=== PATIENT | female | born 1970 | race Caucasian/White ===

== ENCOUNTER 2019-11-08 11:44 | Emergency (ER) | payer OTHER ==
[2019-11-08] MEDS ORDERED: TORAdol 30 mg Injection IM ONE (12:39)
[2019-11-08] MEDS ORDERED: Norflex 60 MG/2 ML IM ONE (12:39)
--- NOTE | 2019-11-08 13:28 | XRAY ---
Indication: Back pain. History non-Hodgkin's lymphoma. Metastatic lesion. Multiple contiguous axial images obtained through the lumbar spine. Two-dimensional sagittal and coronal reformatted images obtained. Comparison: None Axial images negative for acute fracture, suspicious bony lesions, or spinal canal stenosis. Bilateral L5 spondylolysis with minimal L5-S1 broad-based disc bulge produces bilateral foraminal narrowing. Sagittal and coronal reformatted images demonstrates normal alignment with vertebral body heights/disc spaces maintained. No acute compression fracture or subluxation. Visualized noncontrasted soft tissues emesis minimal aortic calcifications without AAA. Impression: 1. Minimal L5-S1 broad-based disc bulge and L5 spondylolysis without spondylolisthesis with subsequent mild bilateral foraminal narrowing. 2. Remaining CT lumbar spine is negative.
[2019-11-08] MEDS ORDERED: TORAdol 30 mg Injection ONE (13:53)
[2019-11-08] MEDS ORDERED: Norflex 60 MG/2 ML ONE (13:53)
--- NOTE | 2019-11-08 14:43 | XRAY ---
Indication: Back pain. Multiple contiguous axial images obtained through the thoracic spine. Sagittal and coronal reformatted images obtained. Comparison: None Axial images negative for acute fracture, suspicious bony lesions, or spinal canal stenosis. Sagittal and coronal reformatted images demonstrates minimal dextroscoliosis centered at T8. Vertebral body heights/disc spaces maintained. No acute compression fracture or subluxation. Visualized noncontrasted soft tissues demonstrates mild bilateral lung dependent atelectasis, minimal biapical subpleural cystic changes, and minimal aortic calcifications. Impression: 1. Minimal dextroscoliosis and chronic chest findings. 2. Remaining CT thoracic spine is negative.
--- NOTE | 2019-11-08 15:25 | ERPHSYRPT ---
- History of Present Illness Time Seen by Provider: 11/08/19 12:25 Source: patient Patient Subjective Stated Complaint: Back pain Triage Nursing Assessment: Patient ambulated into ED and transferred self to bed. Patient A+O X3. Patient's skin pink, warm and dry. Patient complains of upper back pain that hurts when she extends arms for the past two months. No visible areas or injuries noted. Patient denies injury. Patient states pain is constant aching 8/10. Physician History: 48 years old female with history of scoliosis present to ER with mid back pain for the last one to 2 months with progressive worsening with movements of arms and ambulation and better with resting. Denies any numbness tingling or weakness of extremities. Denies any fall or trauma. Patient has been taking [id number] medication with no significant relief.denies any chest or abdominal pain. Timing/Duration: week(s) (4), intermittent, gradual onset, worse (seems toiis going to stay as her) Method of Injury: unknown Quality: sharp, throbbing Back Pain Location: T-spine, lumbar spine Severity of Pain-Max: moderate Severity of Pain-Current: moderate Modifying Factors: Improves With: movement, rest Associated Symptoms: lower back pain, muscle spasms, No urinary incontinence, No loss of bowel control, No problems urinating, No numbness in legs/feet, No sensory/motor loss, No tingling in legs/feet Previous symptoms: same symptoms as today Allergies/Adverse Reactions: nitrofurantoin [From Macrodantin] Allergy (Verified 11/08/19 12:02) Hx Influenza Vaccination/Date Given: No Hx Pneumococcal Vaccination/Date Given: No Immunizations Up to Date: Yes - Review of Systems Constitutional: No Symptoms Eyes: No Symptoms Ears, Nose, & Throat: No Symptoms Respiratory: No Symptoms Cardiac: No Symptoms Abdominal/Gastrointestinal: No Symptoms Musculoskeletal: Back Pain, Joint Pain, Myalgias Skin: No Symptoms Neurological: No Symptoms Psychological: No Symptoms Endocrine: No Symptoms Hematologic/Lymphatic: No Symptoms - Past Medical History Pertinent Past Medical History: Yes Neurological History: No Pertinent History ENT History: No Pertinent History Cardiac History: No Pertinent History Respiratory History: No Pertinent History Endocrine Medical History: No Pertinent History Musculoskeletal History: Degenerative Disk Disease, Fibromyalgia, Osteoarthritis , Other GI Medical History: No Pertinent History History: No Pertinent History Psycho-Social History: Anxiety, Depression Female Reproductive Disorders: No Pertinent History Other Medical History: Lumbar spindylosis. non hodgkin's lymphoma - Past Surgical History Past Surgical History: Yes Neuro Surgical History: No Pertinent History Cardiac: No Pertinent History Respiratory: No Pertinent History Gastrointestinal: No Pertinent History Genitourinary: No Pertinent History Musculoskeletal: Orthopedic Surgery Female Surgical History: Section Other Surgical History: C-sections X 3. Right knee surgery - Social History Smoking Status: Current every day smoker How long have you smoked: years Exposure to second hand smoke: Yes Drug Use: marijuana Patient Lives Alone: No - Female History Hx Last Menstrual Period: two week ago Hx Now: (unknown) - Nursing Vital Signs Nursing Vital Signs: Initial Vital Signs Temperature 98.1 F 11/08/19 12:03 Pulse Rate 81 11/08/19 12:03 Respiratory Rate 18 11/08/19 12:03 Blood Pressure 171/101 11/08/19 12:03 O2 Sat by Pulse Oximetry 99 11/08/19 12:03 Pain Scale Pain Intensity 8 - Physical Exam General Appearance: no apparent distress Eye Exam: PERRL/EOMI, eyes nml inspection Ears, Nose, Throat Exam: normal ENT inspection Neck Exam: normal inspection, non-tender, supple, full range of motion Respiratory Exam: normal breath sounds, lungs clear, No chest tenderness Cardiovascular Exam: regular rate/rhythm, normal heart sounds, normal peripheral pulses Gastrointestinal Exam: soft, normal bowel sounds, No tenderness Pelvic Exam: not done Back Exam: normal inspection, vertebral tenderness (upper thoracic/lower lumbar) , No normal range of motion, No CVA tenderness Extremity Exam: normal inspection, normal range of motion, pelvis stable Neurologic Exam: alert, oriented x 3, cooperative, nml cerebellar function, nml station & gait, sensation nml, No motor deficits, No sensory deficit Skin Exam: normal color SpO2 Interpretation: normal SpO2: 98 O2 Delivery: Room Air Ordered Tests: Active Orders 24 hr Category Date Time Status LUMBAR SPINE W/O [CT] Stat Exams 11/08/19 12:39 Completed THORACIC SPINE W/O CONTRAST [CT] Stat Exams 11/08/19 13:33 Completed Medication Summary Discontinued Medications Generic Name Dose Route Start Last Admin Trade Name Freq PRN Reason Stop Dose Admin Ketorolac Tromethamine 30 mg 11/08/19 12:39 11/08/19 14:03 Toradol 30 Mg Injection IM 11/08/19 12:40 30 mg STAT ONE Administration Ketorolac Tromethamine Confirm 11/08/19 13:53 Toradol 30 Mg Injection Administered 11/08/19 13:54 Dose 30 mg .ROUTE .STK-MED ONE Orphenadrine Citrate 60 mg 11/08/19 12:39 11/08/19 14:04 Norflex 60 Mg/2 Ml IM 11/08/19 12:40 60 mg STAT ONE Administration Orphenadrine Citrate Confirm 11/08/19 13:53 Norflex 60 Mg/2 Ml Administered 11/08/19 13:54 Dose 60 mg .ROUTE .STK-MED ONE - Progress Progress: improved, re-examined Progress Note: she is givenToradol and Norflex, reevaluation her pain is much better. She is ambulating in the ER without any limitations. No acute findings suggesting cauda equina and negative neuro exam and lower extremities. CTs are negative for any acute findings. I were start her on muscle relaxants and NSAIDs and recommended outpatient followup.discussed signs and symptoms of worsening needing return to ER but she seemed understanding. 11/08/19 15:30 11/08/19 15:31 Counseled pt/family regarding: diagnosis, need for follow-up, rad results - Departure Departure Disposition: Home Clinical Impression: Strain of mid-back Qualifiers: Encounter type: initial encounter Qualified Code(s): S29.012A - Strain of muscle and tendon of back wall of thorax, initial encounter Condition: Stable Critical Care Time: No Referrals: KIKE WARREN MD [Primary Care Provider] - Follow Up with PCP/3 days Instructions: Low Back Pain (DC) Additional Instructions: take Tylenol/ibuprofen along with muscle relaxants as needed. Followup with primary care for reevaluation. Return to the ER for worsening pain, numbness tingling weakness of lower extremity/loss of bowel or bladder-control. Prescriptions: Ibuprofen 600 mg PO Q6HPRN PRN 10 Days #20 tablet PRN Reason: Pain Cyclobenzaprine HCl 10 mg [Flexeril 10 MG] 10 mg PO TID #12 tablet
[2019-11-08 15:28] VITALS: BP 149/87; PULSE 84
[2019-11-08 15:30] VITALS: O2SAT 98
== END 2019-11-08 15:31 | disposition home or self-care (01) ==
LOC: ED 11:44
DX: S29.012A Strain of muscle and tendon of back wall of thorax, initial encounter (principal)
CPT/HCPCS: 72128; 72131; 96372; 99284; J1885; J2360